=== PATIENT | female | born 1990 | race Caucasian/White ===

== ENCOUNTER 2024-07-28 10:43 | Outpatient (CLI) | payer BC | END 2024-07-28 10:44 | disposition home or self-care (01) | LOC: CSHRAD 10:43 | PROVIDERS: ATTEND Advanced Practice Midwife | DX: Z78.9 Other specified health status (principal) | CPT/HCPCS: 58340; 74740 ==

== ENCOUNTER 2025-06-21 15:00 | Inpatient (IN) | payer BC ==
[~2025-06-21 15:00] MED LIST: Bupivacaine/Epinephrine 0.25% 30 ML VIAL ONE
[2025-06-21 15:39] VITALS: BMI 26.9
[2025-06-21] MEDS ORDERED: Acetaminophen 500 MG TAB PO PRN (16:18)
[2025-06-21] MEDS ORDERED: Lidocaine 1% (PF) 30 ML VIAL SC PRN (16:18)
[2025-06-21] MEDS ORDERED: Tranexamic Acid 1,000 MG/10 ML VIAL IVP PRN (16:18)
[2025-06-21] MEDS ORDERED: Ibuprofen 800 MG TAB PO PRN (16:18)
[2025-06-21] MEDS ORDERED: Carboprost 250 MCG/ML AMP IM PRN (16:18)
[2025-06-21] MEDS ORDERED: hydrALAZINE 20 MG/ML VIAL SLOW IVP PRN (16:18)
[2025-06-21] MEDS ORDERED: Diphenoxylate HCl/Atropine Tablet PO PRN (16:18)
[2025-06-21] MEDS ORDERED: Methylergonovine 0.2 MG/ML VIAL IM PRN (16:18)
[2025-06-21] MEDS ORDERED: Oxytocin 30 units/NS 500 ML 500 ML IV SCH (16:30)
[2025-06-21 17:32] LABS: Hematocrit 39.0 % (34.9-44.5); Hemoglobin 13.8 g/dL (12.0-15.5); Mean Corpuscular Hemoglobin 32.2 pg (27.0-33.0); Mean Corpuscular Volume 91.1 fL (81.6-98.3); Platelet Count 208 10x3/uL (150-450); Red Blood Cell (RBC) Count 4.28 10x6/uL (3.90-5.03); White Blood Cell (WBC) Count 10.69 10x3/uL (3.5-10.5)
[2025-06-21 19:19] LABS: Syphilis Antibody Index 0.06 S/CO (<1.00 Non-Reactive)
[2025-06-21 19:20] LABS: Hep B Surf Ag - L&D Non-Reactive S/CO (NonReactive)
[2025-06-21] MEDS: fentaNYL/Ropivacaine Epidural 100 ML ONE (21:41)
[2025-06-21] MEDS ORDERED: Ondansetron PF 4 MG/2 ML Vial IVP PRN (21:46)
[2025-06-21] MEDS ORDERED: diphenhydrAMINE 50 MG/ML VIAL IVP PRN (21:46)
[2025-06-21] MEDS ORDERED: Acetaminophen 325 MG TAB PO PRN (21:46)
[2025-06-21] MEDS ORDERED: Communication Order-Pharmacy FS SCH (22:00)
[2025-06-22] MEDS: fentaNYL 2 mcg/Ropivacaine 0.2% Epidural 100 ML CADD EPIDURAL SCH (05:08)
[2025-06-22] MEDS: Ondansetron PF 4 MG/2 ML Vial IVP PRN (07:16)
[2025-06-22] MEDS: Oxytocin 30 units/NS 500 ML 500 ML IV SCH (09:00)
[2025-06-22] MEDS ORDERED: Oxytocin 30 units/NS 500 ML 500 ML IV SCH (14:13)
[2025-06-22] MEDS ORDERED: Milk Of Magnesia 30 ML UDCUP PO PRN (14:13)
[2025-06-22] MEDS ORDERED: HYDROcodone/Acetaminophen 5/325 mg Tablet PO PRN ×2 (14:13)
[2025-06-22] MEDS ORDERED: Boostrix 0.5 ML (Tdap) VIAL (>/=7 yrs of age) IM ONE (14:13)
[2025-06-22] MEDS ORDERED: Bisacodyl 10 MG SUPP PR PRN (14:13)
[2025-06-22] MEDS ORDERED: hydrALAZINE 20 MG/ML VIAL SLOW IVP PRN (14:13)
[2025-06-22] MEDS: Ibuprofen 800 MG TAB PO SCH (15:27)
[2025-06-22] MEDS: Benzocaine-Menthol 82.5 ML CAN TOP PRN (15:28)
[2025-06-22] MEDS: Ferrous Sulfate 325 MG TAB PO SCH (15:28)
[2025-06-22] MEDS: Witch Hazel 100 PAD JAR TOP PRN (17:36)
[2025-06-24 08:59] VITALS: BP 93/57; TEMP 98.1
== END 2025-06-24 15:35 | disposition home or self-care (01) | DRG 807 ==
LOC: CSHLD/OP 15:00 → CSHLD 16:26 → CSHPP 06-22 14:00
PROVIDERS: ADMIT Obstetrics & Gynecology; ATTEND Obstetrics & Gynecology
PROC: 10E0XZZ Delivery of Products of Conception, External Approach (ICD-10-PCS; principal; 2025-06-21)
PROC: 0KQM0ZZ Repair Perineum Muscle, Open Approach (ICD-10-PCS; 2025-06-21)
PROC: 0UQMXZZ Repair Vulva, External Approach (ICD-10-PCS; 2025-06-21)
DX: O48.0 Post-term pregnancy (principal); Z37.0 Single live birth; Z3A.40 40 weeks gestation of pregnancy; Z98.890 Other specified postprocedural states; Z67.10 Type A blood, Rh positive; O70.1 Second degree perineal laceration during delivery; Z79.899 Other long term (current) drug therapy
CPT/HCPCS: 36415; 51702; 85027; 86780; 86850; 86900; 86901; 87340; 99285; J2405; J2590; J7120